=== PATIENT | male | born 1955 ===

== ENCOUNTER 2018-08-27 18:06 | Emergency (ER) | payer MEDICAID ==
[2018-08-27 18:09] VITALS: RESP 16; TEMP 97.2
--- NOTE | 2018-08-27 18:51 | ED PDOC ---
HPI: Psych/Substance Abuse Time Seen by Provider: 08/27/18 18:15 Chief Complaint (Nursing): Alcohol Ingestion Chief Complaint (Provider): Alcohol Ingestion ED Caveat: Intoxicated History Per: Patient, EMS Onset/Duration Of Symptoms: Hrs ([employer]) Current Symptoms Are (Timing): Still Present Modifying Factor(s): Alcohol Additional Complaint(s): 62 year old male with a history of ETOH abuse, stroke, and hypertension presents to the ED via EMS for ETOH intoxication. [place] and was uncooperative with EMS in the field. He has no complaints at present. Patient admits to drinking alcohol today and drinks daily, but will not quantify how many beverages he had today. OF note, patient is well known to the provider for frequent visits at other hospitals ED ([facility]). PMD: none provided Past Medical History Reviewed: Historical Data, Nursing Documentation, Vital Signs Vital Signs: Last Vital Signs Temp 97.2 F L 08/27/18 18:08 Pulse 81 08/27/18 18:08 Resp 16 08/27/18 18:08 BP 159/81 H 08/27/18 18:08 Pulse Ox 98 08/27/18 18:08 - Medical History PMH: CVA, HTN - Family History Family History: States: Unknown Family Hx - Living Arrangements Living Arrangements: Other (homeless) - Social History Current smoker - smoking cessation education provided: Yes Alcohol: Other (daily, patient is an alcoholic) - Allergies Allergies/Adverse Reactions: Allergies Allergy/AdvReac Type Severity Reaction Status Date / Time No Known Allergies Allergy Verified 08/27/18 18:08 Review of Systems ROS Statement: Except As Marked, All Systems Reviewed And Found Negative Psych: Positive for: Other (alcohol intoxication) Physical Exam - Reviewed Nursing Documentation Reviewed: Yes Vital Signs Reviewed: Yes - Physical Exam Comments: GENERAL APPEARANCE: Patient is awake and oriented to person, intoxicated with odor of alcohol on breath, with poor hygiene. SKIN: Warm, dry; (-) cyanosis HEAD: (-) scalp swelling, (-) scalp tenderness. EYES: (+) bilateral conjunctival injection ENMT: Mucous membranes moist. Airway patent: (-) stridor. NECK: Supple, FROM HEART AND CARDIOVASCULAR: (-) irregularity CHEST AND RESPIRATORY: (-) rales, (-) rhonchi, (-) wheezes; breath sounds equal. Respirations even and nonlabored. ABDOMEN: Soft, (-) distention, (-) tenderness, (-) guarding. NEURO AND PSYCH: Mental status as above. (-) facial asymmetry. Gait: unsteady. - ECG O2 Sat by Pulse Oximetry: 98 (RA) Pulse Ox Interpretation: Normal Medical Decision Making Medical Decision Making: Time: 1814 Clinical Impression: Alcohol intoxication Initial Plan: --Alcohol serum --Glucose 1844 Patient tolerating PO intake without difficulty. Accucheck: 84 1934 Patient is sleeping comfortably, no acute distress Serum alcohol: 350 5 Patient refusing to stay in bed at this time. Gait unsteady. 1:1 observation ordered as patient is a fall risk. 2200 Patient sleeping comfortably. 2330 Repeat BP: 138/79 Patient now AAOx3, ambulatory with a steady gait. On re-evaluation, patient reports improvement of symptoms. Lungs clear to auscultation, cardiac RRR, repeat neuro exam shows no focal findings. Vitals stable. Lab /Diagnostic results d/w the patient in great detail. Diagnosis of alcohol abuse with intoxication d/w the patient. Based on history, exam and diagnostic results, plan will be for outpatient follow up with clinic. Patient instructed to follow-up with pmd / referral provided / the clinic in 1- 2 days without fail. Return to the emergency room at any time for any new or w orsening symptoms. Patient states he fully agrees with and understands discharge instructions. States that he agrees with the plan and disposition. Verbalized and repeated discharge instructions and plan. I have given the patient opportunity to ask any additional questions. Scribe Attestation: Documented by Tiffany Marie, acting as a scribe for Reva Hercules PA-C. Provider Scribe Attestation: All medical record entries made by the Scribe were at my direction and personally dictated by me. I have reviewed the chart and agree that the record accurately reflects my personal performance of the history, physical exam, medical decision making, and the department course for this patient. I have also personally directed, reviewed, and agree with the discharge instructions and disposition. Disposition - Clinical Impression Clinical Impression: Alcohol abuse with intoxication - Patient ED Disposition Is Patient to be Admitted: No Counseled Patient/Family Regarding: Studies Performed, Diagnosis, Need For Followup - Disposition Referrals: [facility] [Outside] Disposition: Routine/Home Disposition Time: 23:30 Condition: FAIR Additional Instructions: The emergency medical care you received today was directed at your acute symptoms. If you were prescribed any medication, please fill it and take as directed. It may take several days for your symptoms to resolve. Return to the Emergency Department if your symptoms worsen, do not improve, or if you have any other problems. Please contact your doctor in 2 days for re-evaluation and follow up / or call one of the physicians/clinics you have been referred to that are listed on the Patient Visit Information form that is included in your discharge packet. Bring any paperwork you were given at discharge with you along with any medications you are taking to your follow up visit. Our treatment cannot replace ongoing medical care by a primary care provider (PCP) outside of the emergency department. Instructions: Alcohol Abuse and Alcoholism (DC), Effects of Alcohol on Your Health Forms: [employer] (Georgian) Print Language: FRISIAN - POA Present On Arrival: None Results - Lab Results Lab Results: 08/27/18 08/27/18 18:42 18:41 POC Glucose (mg/dL) 84 Alcohol, Quantitative 350 H*
[2018-08-28 00:03] VITALS: BP 138/77; PULSE 80; O2SAT 97
== END 2018-08-28 00:03 | disposition home or self-care (01) ==
LOC: H.ER 18:06
DX: F10.129 Alcohol abuse with intoxication, unspecified (principal); F17.200 Nicotine dependence, unspecified, uncomplicated; I10 Essential (primary) hypertension; Z86.73 Personal history of transient ischemic attack (TIA), and cerebral infarction without residual deficits; Y90.8 Blood alcohol level of 240 mg/100 ml or more